=== PATIENT | male | born 1975 ===

== ENCOUNTER 2018-07-19 18:14 | Emergency (ER) | payer OTHER, SELFPAY ==
[2018-07-19 18:33] VITALS: BP 139/91; PULSE 87; RESP 16; TEMP 37.2; O2SAT 95; BMI 41.8
--- NOTE | 2018-07-19 20:27 | ED.EXTPRO ---
HPI - Extremity Problem <LEAH Hobbs - Last Filed: 07/19/18 22:05> General Chief complaint: Extremity Problem,Nontraumatic Stated complaint: NECK AND SHOULDER PAIN RT SIDE Time Seen by Provider: 07/19/18 20:26 Source: patient Mode of arrival: ambulatory Limitations: no limitations History of Present Illness HPI Narrative: 42-year-old male with history of migraine headaches and is a non smoker here for complaint of pain into the right neck and shoulder area over the past several days. He denies any trauma to the area. 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 He reports increased pain today where he felt a sharp pain into his trapezius area. he denies any other concerns or complaints at this time. Related Data Previous Rx's Medication Instructions Recorded cyclobenzaprine 10 mg PO TID PRN #15 tab 07/19/18 sumatriptan succinate 25 mg PO Q2-4H PRN #20 tab 07/19/18 Allergies Allergy/AdvReac Type Severity Reaction Status Date / Time No Known Drug Allergies Allergy Verified 07/19/18 18:33 Review of Systems <LEAH Hobbs - Last Filed: 07/19/18 22:05> Constitutional Denies chills, Denies fever(s), Denies lethargy and Denies weakness Eyes Denies change in vision, Denies eye discharge, Denies irritation and Denies loss of vision ENT Ears, Nose, Mouth, and Throat: Denies change in voice, Reports neck pain and Denies sore throat Cardiovascular Denies chest pain, Denies irregular heart rhythm, Denies lightheadedness, Denies palpitations, Denies dyspnea, Denies dyspnea on exertion and Denies orthopnea Respiratory Denies cough, Denies dyspnea, Denies dyspnea on exertion and Denies wheezing Gastrointestinal Gastrointestinal: Denies abdominal pain, Denies change in bowel habits, Denies diarrhea, Denies nausea and Denies vomiting Musculoskeletal Reports neck pain Comments: Pain into the cervical paraspinals of the right side into the trapezius area. Integumentary/Breasts Denies pruritus, Denies erythema, Denies rash and Denies wounds Neurologic Denies confusion, Denies loss of vision and Denies weakness Psychiatric Denies anxiety, Denies confusion, Denies depression, Denies homicidal ideation and Denies suicidal ideation Endocrine Denies palpitations Hematologic/Lymphatic Denies easy bruising Allergic/Immunologic Denies wheezing Exam <LEAH Hobbs - Last Filed: 07/19/18 22:05> Initial Vital Signs Initial Vital Signs: Vital Signs Temperature 98.9 F 07/19/18 18:33 Pulse Rate 87 07/19/18 18:33 Respiratory Rate 16 07/19/18 18:33 Blood Pressure 139/91 H 07/19/18 18:33 Pulse Oximetry 95 07/19/18 18:33 Const General: cooperative and well developed Nutritional Appearance: well nourished Orientation: alert, awake, oriented x3 and not confused HENVT Mouth: oral mucosae normal and moist mucous membranes Eyes General: appearance normal, both eyes and all related structures Eyelids: eyelids normal Conjunctivae: conjunctivae normal Sclera: sclerae normal Pupils: PERRL EOM: EOM intact bilaterally Neck Neck: normal visual inspection, trachea midline, No lymphadenopathy, No midline deformity and No JVD Lymphatic: No lymphedema Other: Tenderness to the right lower cervical paraspinals on palpation with muscle spasm to the trapezius area. Chest Chest: normal inspection of the chest Resp Effort & Inspection: normal respiratory effort, able to speak in complete sentences, no respiratory distress and no use of accessory muscles Auscultation: clear to auscultation bilaterally, no rales, no rhonchi and no wheezes Cardio Rate: regular rate Rhythm: regular rhythm Heart Sounds: no click, no gallops, no murmurs and no rubs Skin General: no rashes or lesions noted, No jaundice and No petechiae Neuro General: alert, oriented x3, gait normal and no focal motor deficits Speech: speech normal Extrem Right upper extremity: normal to inspection and normal capillary refill Psych Appearance: well kempt Mental Status: mental status grossly normal Attitude: cooperative Thought Content: normal and suicidality Judgment: judgment good <Jane Mcgraw DO - Last Filed: 07/20/18 21:13> Initial Vital Signs Initial Vital Signs: Vital Signs Temperature 98.9 F 07/19/18 18:33 Pulse Rate 87 07/19/18 18:33 Respiratory Rate 16 07/19/18 18:33 Blood Pressure 139/91 H 07/19/18 18:33 Pulse Oximetry 95 07/19/18 18:33 Course <LEAH Hobbs - Last Filed: 07/19/18 22:05> Orders Ordered: Discontinued Medications Cyclobenzaprine HCl (Flexeril 10 Mg Prepack) 1 bottle MISC SEEINSTR ONE Stop: 07/19/18 21:40 Last Admin: 07/19/18 21:57 Dose: 1 bottle Vital Signs - 8 hr 07/19/18 18:33 07/19/18 20:30 Temperature 98.9 F 98.3 F Pulse Rate 87 61 Respiratory Rate 16 18 Blood Pressure 139/91 H Blood Pressure [Left Arm] 107/54 L Pulse Oximetry 95 95 <Jane Mcgraw DO - Last Filed: 07/20/18 21:13> Orders Ordered: Discontinued Medications Cyclobenzaprine HCl (Flexeril 10 Mg Prepack) 1 bottle MISC SEEINSTR ONE Stop: 07/19/18 21:40 Last Admin: 07/19/18 21:57 Dose: 1 bottle Vital Signs - 8 hr 07/19/18 18:33 07/19/18 20:30 Temperature 98.9 F 98.3 F Pulse Rate 87 61 Respiratory Rate 16 18 Blood Pressure 139/91 H Blood Pressure [Left Arm] 107/54 L Pulse Oximetry 95 95 MDM - Extremity (Nontraumatic) <LEAH Hobbs - Last Filed: 07/19/18 22:05> MDM Narrative Medical decision making narrative: Signs and symptoms presents as muscle strain into the cervical paraspinals and trapezius area. With muscle spasm. [id number] ibuprofen for discomfort. Cyclobenzaprine for his scribe to help with muscle spasm. May use heat to area a few times a day for 20 min at a time over the next few days to see if it helps keep muscles loose. Rest area. Follow up with primary care provider. for any worsening symptoms return to the emergency room. He requested a prescription for his Imitrex and that was refill tonight Discharge Plan Departure Patient Disposition: Home Clinical Impression: Neck strain Discharge Date/Time: 07/19/18 22:10 Interventions: ED Discharge Assessment Last Done: 07/19/18 22:06 Instructions: DI for Neck Pain Activity Restrictions/Additional Instructions: signs and symptoms presents as a muscle strain into your neck muscles and also trapezius muscle. use [id number] ibuprofen as needed for any discomfort. I have also prescribed a muscle relaxer called cyclobenzaprine. Use as directed. No driving on the muscle relaxers a can make you drowsy. Gentle range of motion to painful areas to help keep muscle loose. May use heat to area 20 min at a time a few times a day over the next few days to keep muscles loose. Rest area. Follow up with her primary care provider. Small amount of Imitrex prescription is refilled. for any worsening symptoms return to the emergency room. Prescriptions: New cyclobenzaprine 10 mg tablet 10 mg PO TID PRN (Reason: muscle spasm) Qty: 15 RF: 0 sumatriptan succinate 25 mg tablet 25 mg PO Q2-4H PRN (Reason: migraine headache) Qty: 20 RF: 0 Referrals: [facility] [Provider Group] <Jane Mcgraw DO - Last Filed: 07/20/18 21:13> Cosign ED Attending Radha Attestation: I was immediately available in the department for consultation. Documentation has been reviewed. I agree with assessment and plan.
[2018-07-19 20:30] VITALS: BP 107/54; PULSE 61; RESP 18; TEMP 36.8; O2SAT 95
[2018-07-19] MEDS: CYCLOBENZAPRINE 10 MG PREPACK 1 BOTTLE MISC (21:57)
[2018-07-19 22:06] VITALS: BP 151/78; PULSE 84; RESP 16; O2SAT 96
== END 2018-07-19 22:10 | disposition home or self-care (01) ==
PROVIDERS: Emergency Provider Nurse Practitioner Family
DX: S16.1XXA Strain of muscle, fascia and tendon at neck level, initial encounter (principal)
CPT/HCPCS: 99283